=== PATIENT | female | born 1990 | race Two or more races ===

== ENCOUNTER 2018-12-06 14:08 | Emergency (ER) | payer OTHER ==
[~2018-12-06] VITALS: Ht 167.6 cm; Wt 59.0 kg
[~2018-12-06 14:08] MED LIST: DOLOGESIC 500-1 EACH PO; ZYNCOF 20-400120 ML PO
== END 2018-12-06 18:06 | disposition home or self-care (01) ==
LOC: ER 14:08
DX: B96.0 Mycoplasma pneumoniae [M. pneumoniae] as the cause of diseases classified elsewhere (principal); J02.8 Acute pharyngitis due to other specified organisms; J32.8 Other chronic sinusitis

== ENCOUNTER 2019-01-08 09:11 | Emergency (ER) | payer OTHER ==
[~2019-01-08] VITALS: Ht 167.6 cm; Wt 59.0 kg
== END 2019-01-08 12:07 | disposition home or self-care (01) ==
LOC: ER 09:11
DX: H92.02 Otalgia, left ear (principal); H61.22 Impacted cerumen, left ear

== ENCOUNTER 2019-06-04 09:45 | Emergency (ER) | payer OTHER ==
[~2019-06-04] VITALS: Ht 167.6 cm; Wt 63.0 kg
== END 2019-06-04 16:12 | disposition home or self-care (01) ==
LOC: ER 09:45
DX: M25.511 Pain in right shoulder (principal)

== ENCOUNTER 2020-01-04 06:46 | Emergency (ER) | payer OTHER ==
[~2020-01-04] VITALS: Ht 167.6 cm; Wt 59.0 kg
[2020-01-04] MEDS ORDERED: MUCINEX DM ER1 EAC1 PO (12:32)
[2020-01-04] MEDS ORDERED: TESSALON PERLE100 M1 PO (12:32)
[2020-01-04] MEDS ORDERED: ZITHROMAX500 MG PO (12:32)
[2020-01-04] MEDS ORDERED: MEDROLPACK PO (12:32)
== END 2020-01-04 12:50 ==
LOC: ER 06:46
DX: J40 Bronchitis, not specified as acute or chronic (principal); B96.0 Mycoplasma pneumoniae [M. pneumoniae] as the cause of diseases classified elsewhere; R53.81 Other malaise; Z20.828 Contact with and (suspected) exposure to other viral communicable diseases

== ENCOUNTER 2020-09-04 15:18 | Emergency (ER) | payer OTHER ==
[~2020-09-04] VITALS: Ht 167.6 cm; Wt 59.0 kg
[~2020-09-04 15:18] MED LIST changes: +MEDROLPACK PO; +MUCINEX DM ER1 EAC1 PO; +TESSALON PERLE100 M1 PO; +ZITHROMAX500 MG PO
[2020-09-04] MEDS ORDERED: CEFADROXIL500 MG PO (17:17)
== END 2020-09-04 17:25 | disposition home or self-care (01) ==
LOC: ER 15:18
DX: H92.02 Otalgia, left ear (principal); H61.22 Impacted cerumen, left ear